=== PATIENT | male | born 1975 | race Caucasian/White ===

== ENCOUNTER 2017-02-04 16:02 | Emergency (ER) | payer BC, OTHER ==
[~2017-02-04] VITALS: Ht 190.5 cm; Wt 64.3 kg
[~2017-02-04 16:02] MED LIST: METF500T PO; METO1TAB54 PO; PANT40TA PO; WARF-246 PO
[2017-02-04 16:06] VITALS: TEMP 36.7; Ht 190.5 cm; Wt 64.3 kg
[2017-02-04] MEDS ORDERED: CHOL100010 PO (16:31)
[2017-02-04] MEDS ORDERED: OMEP40CA41 PO (16:31)
[2017-02-04] MEDS ORDERED: CALC600T37 PO (16:31)
[2017-02-04] MEDS ORDERED: OXYSR/10 PO (16:31)
[2017-02-04 16:54] LABS: BASO % 0.4 %; BASO ABS # 0.03 K/uL (0-0.2); COMPLETE YES; EOS % 2.6 %; HEMATOCRIT 43.8 % (42-52); IG% 0.1 %; LYMPH % 22.7 %; LYMPH ABS # 1.58 K/uL (1.2-3.4); MEAN CELL VOLUME 83.9 fL (80-100); MEAN CORPUSCULAR HEMOGLOBIN 31.6 pg (25-34); MEAN CORPUSCULAR HGB CONC 37.7 g/dl (32-36); MEAN PLATELET VOLUME 9.9 fL (7.4-10.4); MONO % 6.9 %; NEUT % 67.3 %; PLATELET COUNT 158 K/uL (130-400); RED BLOOD COUNT 5.22 M/uL (4.7-6.1); WHITE BLOOD COUNT 6.97 K/uL (4.8-10.8)
[2017-02-04 17:12] LABS: INR 1.3 (0.9-1.1); PARTIAL THROMBOPLASTIN RATIO 1.1; PROTHROMBIN TIME (PATIENT) 13.6 SECONDS (9.0-12.0)
[2017-02-04 17:13] LABS: BUN/CREATININE RATIO 12.1 (10-20); CALCIUM 9.1 mg/dl (8.5-10.1); CREATININE 0.86 mg/dl (0.60-1.40)
[2017-02-04 17:15] LABS: ALB/GLOB RATIO 1.3 (0.9-2)
--- NOTE | 2017-02-04 17:51 | DIAGNOSTIC IMAGING REPORT ---
ULTRASOUND BILATERAL LOWER EXTREMITY VENOUS CLINICAL HISTORY: Bilateral leg pain. COMPARISON STUDY: No priors. TECHNIQUE: Real-time, grayscale, and color Doppler sonography of the deep veins of the right and left lower extremity was performed from the inguinal crease to the calf. Compression and augmentation were utilized. FINDINGS: Right lower extremity: There is occlusive superficial venous thrombus identified within the right greater saphenous vein extending from the proximal thigh to the calf. There is occlusive deep venous thrombosis identified in the right calf within 1 of the peroneal veins. The remaining calf vessels are clear. No above knee deep venous thrombosis is seen in the right lower extremity. The common femoral, superficial femoral, and popliteal veins are patent and normally compressible. Left lower extremity: There is no sonographic evidence of deep venous thrombosis identified in the left lower extremity. The common femoral, superficial femoral, and popliteal veins are patent and normally compressible. There is occlusive superficial venous thrombus seen in the left greater saphenous vein extending from the mid thigh into the calf. The visualized calf veins are patent. IMPRESSION: 1. There is occlusive deep venous thrombosis identified in the right calf within one of the peroneal veins. 2. No above knee deep venous thrombosis is seen in the right lower extremity. 3. There is no sonographic evidence of deep venous thrombosis identified in the left lower extremity. 4. Extensive occlusive superficial venous thrombus is identified within the greater saphenous vein bilaterally. Electronically signed by: Christian Saunders M.D. 02/04/2017 5:50 PM Dictated Date/Time: 02/04/2017 5:45 PM
[2017-02-04] MEDS ORDERED: ENOXAPARIN 100 MG/1ML SYR SQ ONE (18:45)
--- NOTE | 2017-02-04 19:05 | EMERGENCY ROOM VISIT NOTE ---
History First contact with patient: 16:12 Chief Complaint: LEG PAIN,LEG INJURY Stated Complaint: B/L LEG PAIN, HX OF CLOTS History of Present Illness The patient is a 41 year old male who presents to the Emergency Room with complaints of bilateral leg pain which began 3 days ago. The patient reports that at its onset, the pain was a cramping pain in his shins. He now reports that the pain is pinching and burning, and radiates from his lower legs up to his thighs. The pain is worse in the right leg. He rates the discomfort a 9/ 10. The patient states the pain is worse with walking. He is concerned because he has a history of multiple blood clots. 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 He is on chronic warfarin therapy, but reports that his warfarin was held approximately 2 weeks ago due to an injection in his right shoulder. He restarted the warfarin on Thursday at his normal dose, which is 7.5 mg daily and 10 mg on Mondays and Fridays. He has not had his INR checked for a few months. He was previously seen by [facility] primary care provider and the [facility] coagulation clinic, but recently changed primary care providers and is no longer seeing a clinic. The patient denies any numbness, weakness, chest pain, or shortness of breath. Review of Systems A complete 10-point Review of Systems was discussed with the patient, with pertinent positives and negatives listed in the History of Present Illness. All remaining Review of Systems questions can be considered negative unless otherwise specified. Social History Smoking Status: Never Smoker Marital Status: Housing Status: lives with family Occupation Status: employed Current/Historical Medications Scheduled Calcium (Calcium), 600 MG PO QAM Cholecalciferol (Vitamin D), 1,000 UNIT PO QAM Enoxaparin (Lovenox), 100 MG SQ DAILY Metformin Hcl (Glucophage), 500 MG PO BID Omeprazole (Prilosec), 40 MG PO QAM Oxycodone HCl (Oxycontin), 10 MG PO QID Warfarin Sodium (Warfarin Sodium), 7.5 TAB PO 5XWK Warfarin Sodium (Warfarin Sodium), 10 TAB PO 2XWK Allergies Coded Allergies: Cephalexin (Unverified Allergy, Unknown, RASH, 02/04/17) Physical Exam Vital Signs Date Time Temp Pulse Resp B/P Pulse Ox O2 Delivery O2 Flow Rate FiO2 02/04/17 19:55 77 20 140/70 99 02/04/17 18:51 68 18 133/91 99 Room Air 02/04/17 17:55 74 16 124/77 97 Room Air 02/04/17 16:06 36.7 87 16 129/85 95 Room Air Physical Exam VITALS: Vitals are noted on the nurse's note and reviewed by myself. Vital signs stable. GENERAL: This is a 41-year-old male, in no acute distress, nondiaphoretic, well- developed well-nourished. SKIN: Capillary reflex less than 2 seconds. LUNGS: Clear to auscultation bilaterally without wheezes, rales or rhonchi. No retractions or accessory muscle use. MUSCULOSKELETAL: Tenderness to palpation of bilateral calves and thighs. There is red streaking along the medial aspect of the left knee and along the medial aspect of the right thigh. NEURO: Patient was alert and oriented to person place and time. Normal sensation to light and sharp touch. Deep tendon reflexes 2+ throughout. Medical Decision & Procedures ER Provider Diagnostic Interpretation: ULTRASOUND BILATERAL LOWER EXTREMITY VENOUS CLINICAL HISTORY: Bilateral leg pain. COMPARISON STUDY: No priors. TECHNIQUE: Real-time, grayscale, and color Doppler sonography of the deep veins of the right and left lower extremity was performed from the inguinal crease to the calf. Compression and augmentation were utilized. FINDINGS: Right lower extremity: There is occlusive superficial venous thrombus identified within the right greater saphenous vein extending from the proximal thigh to the calf. There is occlusive deep venous thrombosis identified in the right calf within 1 of the peroneal veins. The remaining calf vessels are clear. No above knee deep venous thrombosis is seen in the right lower extremity. The common femoral, superficial femoral, and popliteal veins are patent and normally compressible. Left lower extremity: There is no sonographic evidence of deep venous thrombosis identified in the left lower extremity. The common femoral, superficial femoral, and popliteal veins are patent and normally compressible. There is occlusive superficial venous thrombus seen in the left greater saphenous vein extending from the mid thigh into the calf. The visualized calf veins are patent. IMPRESSION: 1. There is occlusive deep venous thrombosis identified in the right calf within one of the peroneal veins. 2. No above knee deep venous thrombosis is seen in the right lower extremity. 3. There is no sonographic evidence of deep venous thrombosis identified in the left lower extremity. 4. Extensive occlusive superficial venous thrombus is identified within the greater saphenous vein bilaterally. Laboratory Results 02/04/17 16:40 Red Blood Count 5.22, Mean Corpuscular Volume 83.9, Mean Corpuscular Hemoglobin 31.6, Mean Corpuscular Hemoglobin Concent 37.7, Mean Platelet Volume 9.9, Neutrophils (%) (Auto) 67.3, Lymphocytes (%) (Auto) 22.7, Monocytes (%) (Auto) 6.9, Eosinophils (%) (Auto) 2.6, Basophils (%) (Auto) 0.4, Neutrophils # (Auto) 4.69, Lymphocytes # (Auto) 1.58, Monocytes # (Auto) 0.48, Eosinophils # (Auto) 0.18, Basophils # (Auto) 0.03 02/04/17 16:40 Test 02/04/17 16:40 White Blood Count 6.97 K/uL (4.8-10.8) Red Blood Count 5.22 M/uL (4.7-6.1) Hemoglobin 16.5 g/dL (14.0-18.0) Hematocrit 43.8 % (42-52) Mean Corpuscular Volume 83.9 fL (80-100) Mean Corpuscular Hemoglobin 31.6 pg (25-34) Mean Corpuscular Hemoglobin Concent 37.7 g/dl (32-36) Platelet Count 158 K/uL (130-400) Mean Platelet Volume 9.9 fL (7.4-10.4) Neutrophils (%) (Auto) 67.3 % Lymphocytes (%) (Auto) 22.7 % Monocytes (%) (Auto) 6.9 % Eosinophils (%) (Auto) 2.6 % Basophils (%) (Auto) 0.4 % Neutrophils # (Auto) 4.69 K/uL (1.4-6.5) Lymphocytes # (Auto) 1.58 K/uL (1.2-3.4) Monocytes # (Auto) 0.48 K/uL (0.11-0.59) Eosinophils # (Auto) 0.18 K/uL (0-0.5) Basophils # (Auto) 0.03 K/uL (0-0.2) RDW Standard Deviation 39.1 fL (36.4-46.3) RDW Coefficient of Variation 13.0 % (11.5-14.5) Immature Granulocyte % (Auto) 0.1 % Immature Granulocyte # (Auto) 0.01 K/uL (0.00-0.02) Prothrombin Time 13.6 SECONDS (9.0-12.0) Prothromb Time International Ratio 1.3 (0.9-1.1) Activated Partial Thromboplast Time 28.4 SECONDS (21.0-31.0) Partial Thromboplastin Ratio 1.1 Anion Gap 8.0 mmol/L (3-11) Est Creatinine Clear Calc Drug Dose 100.7 ml/min Estimated GFR () 123.1 Estimated GFR (Non- 106.2 BUN/Creatinine Ratio 12.1 (10-20) Calcium Level 9.1 mg/dl (8.5-10.1) Total Bilirubin 0.5 mg/dl (0.2-1) Aspartate Amino Transf (AST/SGOT) 9 U/L (15-37) Alanine Aminotransferase (ALT/SGPT) 20 U/L (12-78) Alkaline Phosphatase 87 U/L (45-117) Total Protein 7.0 gm/dl (6.4-8.2) Albumin 4.0 gm/dl (3.4-5.0) Globulin 3.0 gm/dl (2.5-4.0) Albumin/Globulin Ratio 1.3 (0.9-2) Medications Administered Medications (Trade) Dose Ordered Sig/Oksana Route Start Time Stop Time Status Last Admin Dose Admin Enoxaparin Sodium (Lovenox Inj) 100 mg NOW ONCE SQ 02/04/17 18:45 02/04/17 18:46 DC 02/04/17 18:45 100 MG Medical Decision Differential diagnosis includes DVT, superficial thrombosis, cellulitis, among others. The patient was evaluated as above. Labs were drawn and IV access was obtained. Imaging studies were performed and read by radiology as above. The patient is a 41-year-old male with extensive VTE history who presents today complaining of bilateral leg pain. Ultrasound did show a DVT of the right peroneal vein as well as extensive superficial thrombosis of bilateral lower extremities. INR was found to be 1.3. The patient recently restarted warfarin after stopping it for a few weeks. He will need to be bridged with Lovenox until his INR is therapeutic. Consultation was made to the ED clinical pharmacist. We decided to start the patient on 100 mg of Lovenox subcutaneously once daily. He will take a total of 15 mg warfarin today as well as tomorrow, then will start 10 mg daily. Case management was consulted and will make a referral to the anticoagulation clinic in the morning. The patient will need his INR checked in 2 days and was given an order for this in case he is not able to see the anticoagulation clinic. Results and treatment plan were discussed with the patient, who verbalized his understanding of my assessment and treatment plan and was discharged home in good condition. The patient's case was reviewed with Dr. Pyle, ED attending physician, who agreed with my assessment and treatment plan. Impression Primary Impression: Deep vein thrombosis Additional Impression: Superficial thrombosis of both lower extremities Departure Information Dispostion Home / Self-Care Condition GOOD Prescriptions Enoxaparin (LOVENOX) 100 Mg/Ml Inj 100 MG SQ DAILY for 7 Days, #7 SYR Prov: Maryellen Glass PA-C 02/04/17 Referrals John Angeles M.D. (PCP) Patient Instructions My [facility] Additional Instructions Lovenox: One injection daily until further directed by the coagulation clinic. Coumadin: Take 15 mg tomorrow, then 10 mg daily until further directed by the coagulation clinic. You may use warm compresses over the areas of pain. Case management will call you tomorrow with an appointment at the coagulation clinic or your primary care provider. You need follow-up in 2 days. Return to the emergency department with worsening pain, chest pain, shortness of breath or any other new concerning symptoms. Problem Qualifiers Primary Impression: Deep vein thrombosis DVT location: lower extremity Affected thrombotic vein of extremity: unspecified vein of extremity Laterality: right Chronicity: acute Qualified Codes: I82.401 - Acute embolism and thrombosis of unspecified deep veins of right lower extremity
[2017-02-04] MEDS ORDERED: ENOX100I SQ (19:20)
[2017-02-04 19:55] VITALS: BP 140/70; PULSE 77; O2SAT 99
== END 2017-02-04 19:57 | disposition home or self-care (01) ==
LOC: C.EDB 16:04 → C.EDD 19:57
DX: I82.4Y1 Acute embolism and thrombosis of unspecified deep veins of right proximal lower extremity (principal); I82.813 Embolism and thrombosis of superficial veins of lower extremities, bilateral; Z86.718 Personal history of other venous thrombosis and embolism; Z86.73 Personal history of transient ischemic attack (TIA), and cerebral infarction without residual deficits; Z79.01 Long term (current) use of anticoagulants; Z79.899 Other long term (current) drug therapy; Z88.8 Allergy status to other drugs, medicaments and biological substances

== ENCOUNTER 2024-12-21 13:25 | Observation (INO) ==
[2024-12-21] MEDS: SODIUM CHLORIDE 0.9% 1,000 ML IV ONE ×3 (13:50→18:37)
--- NOTE | 2024-12-21 14:09 | Emergency Department Note ---
Impression & Plan Altered mental status ADMIT ED Provider Note HPI: History obtained from patient. The patient is a 49-year-old gentleman with history of type 2 diabetes, DVT on Coumadin, who presents the emergency department with chief complaint of altered mental status. Patient presents with his significant other at the bedside. Patient began acting strange at work today, EMS was contacted and the patient was noted to be hyperglycemic in the 400s. Patient's significant other states that he does not normally take insulin but he is on oral agents for his type 2 diabetes. On arrival here to the ED the patient is alert, he states he does not remember exactly what happened at work to lead to his presentation to the ER. He did not have any reported fall or loss of consciousness. Patient is able to follow commands on arrival, he does not have any focal deficits. ROS: - Per HPI Differential Diagnosis: DKA, HHNK, viral gastroenteritis, COVID-19, influenza A, stroke, intracranial hemorrhage, small bowel obstruction, acute appendicitis, acute cholecystitis, diverticulitis,, amongst other potential pathologies. *Outpatient medications and allergy history reviewed. PE: General: Alert to verbal stimuli, drowsy appearing HEENT: Normocephalic, trachea midline Eyes: Extraocular eye movement is intact, no scleral erythema Pulmonary: Clear to auscultation bilaterally, no wheezing Cardio: Tachycardic rate and regular rhythm GI: Abdomen is soft to palpation : No suprapubic tenderness MSK: No evidence of trauma or malformation of the extremities, no edema Skin: No evidence of rash Neuro: Alert to verbal stimuli but overall drowsy appearing, no focal deficits, follows commands Psychiatric: Cooperative INDEPENDENT INTERPRETATIONS: monitoring coordinator: (As interpreted by myself): - An order was placed for continuous cardiac monitoring - Patient was noted to be in sinus rhythm with a rate of 119 EKG: (As interpreted by myself): Rate: 128 Rhythm: Sinus tachycardia Intervals: Within normal limits ST changes: No ST elevation Time: 1330 Chest x-ray: (As interpreted by myself): No acute disease Interventions provided in ED: -IV fluid bolus, Narcan Medical Decision Making: IV was established and lab work obtained, patient was placed on youth nutritional monitor. Lab work shows no leukocytosis, hemoglobin is normal, platelet count is normal, INR is supratherapeutic at 4.6, venous blood gas shows a normal pH, pCO2 is also normal. CMP does not show evidence of DKA, serum bicarbonate level is 26, potassium is normal, glucose level is elevated at 275 but there is no anion gap elevation. Lactic acid is mildly elevated at 2.1. Troponin is negative, EKG shows sinus tachycardia without any acute ischemic changes noted. Procalcitonin is low. Urinalysis shows no evidence of infection, 1+ ketones and 3+ glucose are noted. Viral panel testing is negative. CT imaging of the head does not show any evidence of any acute process. CT imaging of the abdomen pelvis with IV contrast was also obtained that does not show any evidence of any acute surgical process. On my reassessment the patient remains tachycardic, while I am speaking to him he seems to be falling asleep and at times requires me to wake him up. At this point I did inquire about possible illicit substance use or opioid overdose, he is noted to be on opioid pain medication for chronic pain according to his significant other at the bedside. Patient denied taking any extra pain medications, denied any illicit drug use or alcohol use. Narcan was administered, per bedside RN patient did become more alert and was mildly agitated following Narcan administration. We will add on a UDS for further investigation although at this point the patient's episode of altered mentation does not have an obvious source. Patient remains tachycardic at 115, he does not appear back to his baseline mentation entirely, I feel he should be admitted for further management and observation given his event today with unclear source. [facility] hospitalist service was consulted for admission and the patient was placed for admission in stable condition. Patient and his spouse at the bedside were in agreement to this plan. Consultants/Discussions held with other healthcare providers: -Hospitalist, Dr. Polanco. Disposition discussion held by myself with: -Patient and patient's significant other at the bedside Diagnosis: 1. Altered mental status episode, acute, nonspecific 2. Hyperglycemia, acute 3. Supratherapeutic INR, acute 4. Nausea and vomiting, acute 5. Sinus tachycardia, acute, nonspecific Disposition: Admission Prasad Andino DO Emergency Medicine Past Med/Surg History Problem List (Updated 12/21/24 @ 16:37 by Prasad Andino DO) Altered mental status (Acute) Deep vein thrombosis (Acute) Muscle spasms of neck (Acute) Superficial thrombosis of both lower extremities (Acute) Social History Preferred Language: Bengali Feels Safe at Home: Yes Allergies Allergies Allergy/AdvReac Type Severity Reaction Status Date / Time cephalexin Allergy Unknown RASH Unverified 12/21/24 16:47 Home Meds Home Medications Medication Instructions Recorded Confirmed glimepiride 1 mg tablet 2 mg PO QDB 12/21/24 12/21/24 metformin 850 mg tablet 850 mg PO BID 12/21/24 12/21/24 omeprazole 40 mg capsule,delayed 40 mg PO DAILY 12/21/24 12/21/24 release oxycodone 15 mg tablet 15 mg PO Q6 PRN Pain 12/21/24 12/21/24 rosuvastatin 10 mg tablet 10 mg PO HS 12/21/24 12/21/24 warfarin 5 mg tablet 5 - 15 mg PO DAILY 12/21/24 12/21/24 Results & Data (ED) Vital Signs Vital Signs - 24 hr 12/21/24 13:42 12/21/24 13:42 12/21/24 13:45 Temperature 37.8 C H Temperature Source Oral Pulse Rate 127 H 122 H Pulse Rate [Finger] Respiratory Rate 22 Respiratory Effort / Characteristics Respiratory Depth Normal Respiratory Pattern Blood Pressure 135/88 Blood Pressure [Right Arm] Blood Pressure Mean 103 Blood Pressure Mean [Right Arm] Pulse Oximetry 95 Oxygen Delivery Method Room Air Room Air Sepsis Recent Fever Within 48 Hours Yes Sepsis New/Unexplained Change in Mental Status No Sepsis Action Taken by Nursing Physician Notified 12/21/24 13:49 12/21/24 15:32 Temperature 37.0 C Temperature Source Oral Pulse Rate Pulse Rate [Finger] 67 Respiratory Rate 16 Respiratory Effort / Characteristics Non-Labored Respiratory Depth Normal Respiratory Pattern Regular Blood Pressure Blood Pressure [Right Arm] 131/81 Blood Pressure Mean Blood Pressure Mean [Right Arm] 97 Pulse Oximetry 95 Oxygen Delivery Method Room Air Room Air Sepsis Recent Fever Within 48 Hours Sepsis New/Unexplained Change in Mental Status Sepsis Action Taken by Nursing Laboratory Data 12/21/24 13:35 12/21/24 13:35 Lab Results 12/21/24 12/21/24 12/21/24 Range/Units 13:34 13:35 14:55 WBC 7.41 (4.8-10.8) K/ul RBC 5.13 (4.70-6.10) M/uL Hgb 15.1 (14.0-18.0) g/dl Hct 42.8 (42.0-52.0) % MCV 83.4 (80.0-100.0) fL MCH 29.4 (25.0-34.0) pg MCHC 35.3 (32.0-36.0) g/dL RDW Std Deviation 38.7 (36.4-46.3) fL RDW Coeff of Justin 13.0 (11.5-14.5) % Plt Count 166 (130-400) K/uL MPV 9.8 (9.4-12.4) fL Immature Gran % (Auto) 2.2 % Neut % (Auto) 85.5 % Lymph % (Auto) 6.3 % [place] % (Auto) 3.8 % Eos % (Auto) 1.8 % Baso % (Auto) 0.4 % Neut # (Auto) 6.34 (1.40-6.50) K/uL Lymph # (Auto) 0.47 L (1.20-3.40) K/uL [place] # (Auto) 0.28 (0.11-0.59) K/uL Eos # (Auto) 0.13 (0.00-0.50) K/uL Baso # (Auto) 0.03 (0.00-0.20) K/uL Immature Gran # (Auto) 0.16 (0.01-0.20) K/uL PT 43.4 H (9.0-12.0) Seconds INR 4.6 H (0.9-1.1) VBG pH 7.39 (7.36-7.41) VBG pCO2 47 (38-50) mmHg VBG pO2 29 mmHg VBG HCO3 29 mmol/L VBG O2 Saturation < 60.0 % VBG Base Excess 2.8 mEq/L Sodium 136 (136-145) mmol/L Potassium 3.9 (3.5-5.1) mmol/L Chloride 101 (98-107) mmol/L Carbon Dioxide 26 (21-32) mmol/L Anion Gap 9 (3-11) BUN 13 (6-23) mg/dl Creatinine 0.91 (0.6-1.4) mg/dl Est Cr Clr Drug Dosing 108.5 ml/min eGFR 102.04 BUN/Creatinine Ratio 14.3 (10-20) Glucose 275 H (70-99(Fasting)) mg/dl POC Glucose 269 H (70-99) mg/dl Lactate 2.1 H* (0.4-2.0) mmol/L Calcium 9.3 (8.6-10.3) mg/dl Total Bilirubin 1.1 H (0.2-1.0) mg/dl AST 27 (13-39) U/L ALT 28 (7-52) U/L Alkaline Phosphatase 76 (34-104) U/L Troponin I High Sens 3.9 (0-20) pg/ml Total Protein 6.6 (6.0-8.3) gm/dl Albumin 4.4 (3.4-5.0) gm/dl Globulin 2.2 L (2.5-4.0) gm/dl Albumin/Globulin Ratio 2.0 (0.9-2) Lipase 12 (11-82) U/L Procalcitonin 0.48 (0-0.5) ng/ml Urine Color Urine Appearance (Clear) Urine pH (4.5-7.5) Ur Specific [place] (1.000-1.030) Urine Protein (Negative) Urine Glucose (UA) (Negative) Urine Ketones (Negative) Urine Blood (Negative) Urine Nitrite (Negative) Urine Bilirubin (Negative) Urine Urobilinogen (Negative) Ur Leukocyte Esterase (Negative) Adenovirus (PCR) (NotDetected) B. pertussis DNA (PCR) (NotDetected) B.parapertussis DNA PCR (NotDetected) C. pneumoniae DNA (PCR) (NotDetected) Coronavirus OC43 (PCR) (NotDetected) Coronavirus HKU1 (PCR) (NotDetected) Coronavirus 229E (PCR) (NotDetected) SARS-CoV-2 (PCR) (NotDetected) Coronavirus NL63 (PCR) (NotDetected) Human Metapneumovir PCR (NotDetected) Influenza Type A (PCR) (NotDetected) Influenza Type B (PCR) (NotDetected) M. pneumoniae (PCR) (NotDetected) Parainfluenza 1 (PCR) (NotDetected) Parainfluenza 2 (PCR) (NotDetected) Parainfluenza 3 (PCR) (NotDetected) Parainfluenza 4 (PCR) (NotDetected) RSV (PCR) (NotDetected) Entero/Rhino (PCR) (NotDetected) 12/21/24 12/21/24 Range/Units 15:41 Unknown WBC (4.8-10.8) K/ul RBC (4.70-6.10) M/uL Hgb (14.0-18.0) g/dl Hct (42.0-52.0) % MCV (80.0-100.0) fL MCH (25.0-34.0) pg MCHC (32.0-36.0) g/dL RDW Std Deviation (36.4-46.3) fL RDW Coeff of Jusitn (11.5-14.5) % Plt Count (130-400) K/uL MPV (9.4-12.4) fL Immature Gran % (Auto) % Neut % (Auto) % Lymph % (Auto) % [place] % (Auto) % Eos % (Auto) % Baso % (Auto) % Neut # (Auto) (1.40-6.50) K/uL Lymph # (Auto) (1.20-3.40) K/uL [place] # (Auto) (0.11-0.59) K/uL Eos # (Auto) (0.00-0.50) K/uL Baso # (Auto) (0.00-0.20) K/uL Immature Gran # (Auto) (0.01-0.20) K/uL PT (9.0-12.0) Seconds INR (0.9-1.1) VBG pH (7.36-7.41) VBG pCO2 (38-50) mmHg VBG pO2 mmHg VBG HCO3 mmol/L VBG O2 Saturation % VBG Base Excess mEq/L Sodium (136-145) mmol/L Potassium (3.5-5.1) mmol/L Chloride (98-107) mmol/L Carbon Dioxide (21-32) mmol/L Anion Gap (3-11) BUN (6-23) mg/dl Creatinine (0.6-1.4) mg/dl Est Cr Clr Drug Dosing ml/min eGFR BUN/Creatinine Ratio (10-20) Glucose (70-99(Fasting)) mg/dl POC Glucose (70-99) mg/dl Lactate (0.4-2.0) mmol/L Calcium (8.6-10.3) mg/dl Total Bilirubin (0.2-1.0) mg/dl AST (13-39) U/L ALT (7-52) U/L Alkaline Phosphatase (34-104) U/L Troponin I High Sens (0-20) pg/ml Total Protein (6.0-8.3) gm/dl Albumin (3.4-5.0) gm/dl Globulin (2.5-4.0) gm/dl Albumin/Globulin Ratio (0.9-2) Lipase (11-82) U/L Procalcitonin (0-0.5) ng/ml Urine Color Yellow Urine Appearance Clear (Clear) Urine pH 5.5 (4.5-7.5) Ur Specific [place] 1.035 H (1.000-1.030) Urine Protein Negative (Negative) Urine Glucose (UA) 3+ H (Negative) Urine Ketones 1+ H (Negative) Urine Blood Negative (Negative) Urine Nitrite Negative (Negative) Urine Bilirubin Negative (Negative) Urine Urobilinogen Negative (Negative) Ur Leukocyte Esterase Negative (Negative) Adenovirus (PCR) Not Detected (NotDetected) B. pertussis DNA (PCR) Not Detected (NotDetected) B.parapertussis DNA PCR Not Detected (NotDetected) C. pneumoniae DNA (PCR) Not Detected (NotDetected) Coronavirus OC43 (PCR) Not Detected (NotDetected) Coronavirus HKU1 (PCR) Not Detected (NotDetected) Coronavirus 229E (PCR) Not Detected (NotDetected) SARS-CoV-2 (PCR) Not Detected (NotDetected) Coronavirus NL63 (PCR) Not Detected (NotDetected) Human Metapneumovir PCR Not Detected (NotDetected) Influenza Type A (PCR) Not Detected (NotDetected) Influenza Type B (PCR) Not Detected (NotDetected) M. pneumoniae (PCR) Not Detected (NotDetected) Parainfluenza 1 (PCR) Not Detected (NotDetected) Parainfluenza 2 (PCR) Not Detected (NotDetected) Parainfluenza 3 (PCR) Not Detected (NotDetected) Parainfluenza 4 (PCR) Not Detected (NotDetected) RSV (PCR) Not Detected (NotDetected) Entero/Rhino (PCR) Not Detected (NotDetected) Administered Medications Discontinued Medications Sodium Chloride (Nss) 1,000 mls @ 999 mls/hr IV .Q1H1M ONE Stop: 12/21/24 14:42 Last Infusion: 12/21/24 14:41 Dose: Infused Documented By: Admin: 12/21/24 14:40 Dose: 999 mls/hr Documented By: MMGiovani Infusion: 12/21/24 14:40 Dose: Infused Documented By: MMGiovani Admin: 12/21/24 13:50 Dose: 999 mls/hr Documented By: MARQUIS Sodium Chloride (Nss) 1,000 mls @ 999 mls/hr IV .Q1H1M ONE Stop: 12/21/24 15:08 Last Infusion: 12/21/24 16:03 Dose: Infused Documented By: Admin: 12/21/24 14:40 Dose: 999 mls/hr Documented By: MARQUIS Ioversol (Optiray 320 100ml) 94 ml IV ONCE ONE Stop: 12/21/24 15:14 Last Admin: 12/21/24 15:13 Dose: 94 ml Documented By: FROYLAN Naloxone HCl (Naloxone Hcl 0.4 Mg/1 Ml Vial/Carp) 0.4 mg IV NOW STA Stop: 12/21/24 16:06 Last Admin: 12/21/24 16:09 Dose: 0.4 mg Documented By: ENMANUEL Imaging Data Radiologist's Impression: Abdomen/Pelvis CT 12/21/24 14:[address] WITH IV CONTRAST CT DOSE: 995.38 mGy.cm HISTORY: N/V/D TECHNIQUE: Multiaxial CT images of the abdomen and pelvis were performed following the IV administration of 90 cc of Optiray, A dose lowering technique was utilized adhering to the principles of ALARA. COMPARISON STUDY: None FINDINGS: There are mild reticular and patchy groundglass opacities in the lung bases, atelectasis versus early pneumonia. ABDOMEN: There is mild splenomegaly measuring 13 cm. There is fatty atrophy of the pancreas. Liver, gallbladder, spleen, pancreas, and adrenal glands are otherwise unremarkable. IVC filter is present. Kidneys show no hydronephrosis or calculi. There are minimal atherosclerotic calcifications. No abdominal aortic aneurysm. Pelvis: Prostate is mildly enlarged. Urinary bladder is nondistended. There is moderate retained stool. No bowel in formation or obstruction. Normal appendix. No free fluid, free air, or abscess. No enlarged adenopathy. Osseous structures: There is a small area of mixed sclerosis and lucency superiorly at the right femoral head consistent with early AVN. No acute osseous findings. IMPRESSION: 1. Atelectasis versus early pneumonia in the lung bases. 2. Mild splenomegaly can be normal variation or can be seen in the setting of mononucleosis. 3. No other acute findings seen. ACT 112: Negative or not required by law. The above report was generated using voice recognition software. It may contain grammatical, syntax or spelling errors. Electronically signed by: Hemal Perkins M.D. 12/21/2024 3:[address] 12/21/24 14:55 CT head/brain wo con CLINICAL HISTORY: AMS Technique: Contiguous axial CT images of the head were acquired from the base of the skull to the vertex without intravenous contrast administration. Images were viewed in brain, subdural and bone windows. Automated dose lowering techniques and/or adjustment according to patient size were utilized for this exam. Comparison: None available at the time of this dictation. Findings: The ventricles, basal cisterns, and cerebral sulci are normal. There is no acute intracranial hemorrhage or evidence of acute territorial infarction. Neither mass effect, shift of the midline structures, nor abnormal extra-axial fluid collections are shown. Imaged portions of the paranasal sinuses and mastoid air cells are clear. The orbits appear normal. There are no acute fractures of the calvaria or scalp swelling. Impression: No acute intracranial hemorrhage, no evidence of acute territorial infarction or other acute intracranial disease process. ACT 112: Negative or not required by law. Electronically signed by: Quincy Loya M.D. 12/21/2024 3:28 PM Discharge Plan Visit Data Chief Complaint: Hyperglycemia Stated Complaint: HYPERGLYCEMIA, AMS, NAUSEA, VOMITING, ILLNESS ED Provider: Prasad Andino Discharge Problem: Altered mental status Forms Stand Alone Forms: [facility] [place] Local Prescriptions Prescriptions: No Action oxycodone 15 mg tablet 15 mg PO Q6 PRN (Reason: Pain) warfarin 5 mg tablet 5 - 15 mg PO DAILY Rx Instructions: OR DIRECTED metformin 850 mg tablet 850 mg PO BID omeprazole 40 mg capsule,delayed release(DR/EC) 40 mg PO DAILY rosuvastatin 10 mg tablet 10 mg PO HS glimepiride 1 mg tablet 2 mg PO QDB Referrals Referrals: Tanmay Schultz MD [Primary Care Provider] -
[2024-12-21 14:16] LABS: Basophils # (auto) 0.03 K/uL (0.00-0.20); Basophils % (auto) 0.4 %; Eosinophils # (auto) 0.13 K/uL (0.00-0.50); Eosinophils % (auto) 1.8 %; Hematocrit (blood only) 42.8 % (42.0-52.0); Hemoglobin 15.1 g/dl (14.0-18.0); Immature Granulocytes # (auto) 0.16 K/uL (0.01-0.20); Immature Granulocytes % (auto) 2.2 %; Lymphocytes # (auto) 0.47 K/uL (1.20-3.40); Lymphocytes % (auto) 6.3 %; Mean Corpuscular Hemoglobin 29.4 pg (25.0-34.0); Mean Corpuscular Hgb Conc 35.3 g/dL (32.0-36.0); Mean Corpuscular Volume 83.4 fL (80.0-100.0); Mean Platelet Volume 9.8 fL (9.4-12.4); Monocytes # (auto) 0.28 K/uL (0.11-0.59); Monocytes % (auto) 3.8 %; Neutrophils # (auto) 6.34 K/uL (1.40-6.50); Neutrophils % (auto) 85.5 %; Platelet Count 166 K/uL (130-400); RDW Standard Deviation 38.7 fL (36.4-46.3); Red Blood Count 5.13 M/uL (4.70-6.10); White Blood Count 7.41 K/ul (4.8-10.8)
[2024-12-21 14:21] LABS: Albumin Level 4.4 gm/dl (3.4-5.0); BUN Creatinine Ratio 14.3 (10-20); Bilirubin,Total 1.1 mg/dl (0.2-1.0); Calcium 9.3 mg/dl (8.6-10.3); Creatinine Clr Calc Pharmacy 108.5 ml/min; Globulin 2.2 gm/dl (2.5-4.0); Potassium 3.9 mmol/L (3.5-5.1); Total Protein 6.6 gm/dl (6.0-8.3)
[2024-12-21 14:27] LABS: Troponin I High Sensitivity 3.9 pg/ml (0-20)
[2024-12-21 14:29] LABS: INR 4.6 (0.9-1.1); Prothrombin Time 43.4 Seconds (9.0-12.0)
[2024-12-21 15:08] LABS: Base Excess VBG 2.8 mEq/L; HCO3 VBG 29 mmol/L; Oxygen Saturation VBG < 60.0 %; PCO2 VBG 47 mmHg (38-50); PO2 VBG 29 mmHg; pH VBG 7.39 (7.36-7.41)
[2024-12-21] MEDS: OPTIRAY 320 100ml IV ONE (15:13)
--- NOTE | 2024-12-21 15:29 | CT Scan Report ---
CT head/brain wo con CLINICAL HISTORY: AMS Technique: Contiguous axial CT images of the head were acquired from the base of the skull to the donn josephine without intravenous contrast administration. Images were viewed in brain, subdural and [facility]. Automated dose lowering techniques and/or adjustment according to patient size were utilized for this exam. Comparison: None available at the time of this dictation. Findings: The ventricles, basal cisterns, and cerebral sulci are normal. There is no acute intracranial hemorrh age or evidence of acute territorial infarction. Neither mass effect, shift of the midline structures , nor abnormal extra-axial fluid collections are shown. Imaged portions of the paranasal sinuses and mastoid air cells are clear. The orbits appear normal. There are no acute fractures of the calvaria or scalp swelling. Impression: No acute intracranial hemorrhage, no evidence of acute territorial infarction or other acute intracra nial disease process. ACT 112: Negative or not required by law. Electronically signed by: Quincy Loya M.D. 12/21/2024 3:28 PM
[2024-12-21 15:52] LABS: Appearance Urine Clear (Clear); Bilirubin Urine Negative (Negative); Blood Urine Negative (Negative); Color Urine Yellow; Glucose Urine UA 3+ (Negative); Ketones Urine 1+ (Negative); Leukocyte Esterase Urine Negative (Negative); Nitrite Urine Negative (Negative); Protein Urine Negative (Negative); Specific Gravity Urine 1.035 (1.000-1.030); Urobilinogen Urine Negative (Negative); pH Urine 5.5 (4.5-7.5)
[2024-12-21 15:55] LABS: Adenovirus PCR Not Detected (NotDetected); Bordetella parapertussis PCR Not Detected (NotDetected); Bordetella pertussis PCR Not Detected (NotDetected); Chlamydia pneumoniae PCR Not Detected (NotDetected); Coronavirus 229E PCR Not Detected (NotDetected); Coronavirus CoV-2 (COVID19)PCR Not Detected (NotDetected); Coronavirus HKU1 PCR Not Detected (NotDetected); Coronavirus NL63 PCR Not Detected (NotDetected); Coronavirus OC43PCR Not Detected (NotDetected); Human Metapneumovirus PCR Not Detected (NotDetected); Influenza A PCR Not Detected (NotDetected); Influenza B PCR Not Detected (NotDetected); Mycoplasma pneumoniae PCR Not Detected (NotDetected); Parainfluenza Virus 1 PCR Not Detected (NotDetected); Parainfluenza Virus 2 PCR Not Detected (NotDetected); Parainfluenza Virus 3 PCR Not Detected (NotDetected); Parainfluenza Virus 4 PCR Not Detected (NotDetected); Respiratory Syncytial VirusPCR Not Detected (NotDetected); Rhinovirus/Enterovirus PCR Not Detected (NotDetected)
--- NOTE | 2024-12-21 15:55 | CT Scan Report ---
ABDOMEN AND PELVIS CT WITH IV CONTRAST CT DOSE: 995.38 mGy.cm HISTORY: N/V/D TECHNIQUE: Multiaxial CT images of the abdomen and pelvis were performed following the IV administrat ion of 90 cc of Optiray, A dose lowering technique was utilized adhering to the principles of ALARA. COMPARISON STUDY: None FINDINGS: There are mild reticular and patchy groundglass opacities in the lung bases, atelectasis ve rsus early pneumonia. ABDOMEN: There is mild splenomegaly measuring 13 cm. There is fatty atrophy of the pancreas. Liver, g allbladder, spleen, pancreas, and adrenal glands are otherwise unremarkable. IVC filter is present. K idneys show no hydronephrosis or calculi. There are minimal atherosclerotic calcifications. No abdomi nal aortic aneurysm. Pelvis: Prostate is mildly enlarged. Urinary bladder is nondistended. There is moderate retained stoo l. No bowel in formation or obstruction. Normal appendix. No free fluid, free air, or abscess. No enl arged adenopathy. Osseous structures: There is a small area of mixed sclerosis and lucency superiorly at the right femo ral head consistent with early AVN. No acute osseous findings. IMPRESSION: 1. Atelectasis versus early pneumonia in the lung bases. 2. Mild splenomegaly can be normal variation or can be seen in the setting of mononucleosis. 3. No other acute findings seen. ACT 112: Negative or not required by law. The above report was generated using voice recognition software. It may contain grammatical, syntax o r spelling errors. Electronically signed by: Hemal Perkins M.D. 12/21/2024 3:53 PM
[2024-12-21] MEDS: NALOXONE HCL 0.4 MG/1 ML VIAL/CARP IV STA (16:09)
[2024-12-21 16:53] LABS: Amphetamines+Metham, Urine Neg (Neg); Barbiturates, Urine Neg (Neg); Benzodiazepine, Urine Pos (Neg); Cocaine, Urine Neg (Neg); Fentanyl, Urine Neg (Neg); MDMA (Ecstacy), Urine Neg (Neg); Marijuana, Urine Neg (Neg); Methadone, Urine Neg (Neg); Opiate, Urine Pos (Neg); Phencyclidine, Urine Neg (Neg)
--- NOTE | 2024-12-21 17:02 | XRay Report ---
EXAM: XR chest 1V portable CLINICAL HISTORY: FEVER CLW TECHNIQUE: An X-ray image of the chest is obtained in frontal projection. COMPARISON: No prior studies are available for comparison. FINDINGS: Pulmonary Parenchyma: Bilateral increased broncho vascular markings with a diffuse increase in lung reticulations which may suggest an element of interstitial lung disease. Bilateral patchy and right lower zone air space opacification partially obscures the right heart border, suggestive of a pneumonic patch. blunted left costophrenic angle with left lower lung lobe with few thin atelectatic bands. Heart and Mediastinum: Heart size and shape are normal. No mediastinal widening or masses. No hilar or mediastinal lymphadenopathy. Bony Thorax: The bony thorax appears intact without fractures or deformities. Soft Tissues: Soft tissues overlying the chest wall are unremarkable. IMPRESSION: 1. Bilateral increased broncho vascular markings with a diffuse increase in lung reticulations, raising concern for atypical infection. 2. Bilateral and right lower lung zone air space opacification partially obscures the right heart border, suggestive of a pneumonic patch, clinical correlation is advised. 3. Blunted left costophrenic angle with left lower lung lobe with few thin atelectatic bands, suggestive of minimal pleural thickening/effusion. Clinical correlation and follow-up after treatment are advised. Electronically signed by Poncho Castro 12-21-2024 5:02 PM
--- NOTE | 2024-12-21 17:04 | Electrocardiogram Report ---
Test Reason : Blood Pressure : */* mmHG Vent. Rate : 128 BPM Atrial Rate : 128 BPM P-R Int : 156 ms QRS Dur : 92 ms QT Int : 298 ms P-R-T Axes : 46 20 32 degrees QTcB Int : 435 ms Sinus tachycardia Possible Left atrial enlargement Type 2 Brugada pattern Borderline ECG When compared with ECG of Confirmed by Aurelio Swartz ([id number]) on 12/21/2024 5:03:38 PM Referred By: REFERRED SELF Confirmed By: Aurelio Swartz
--- NOTE | 2024-12-21 17:22 | History & Physical Report ---
Date of Service December 21, 2024 Assessment & Plan (1) Altered mental status: (2) Hx TIA/stroke w/o resid: (3) T2DM (type 2 diabetes mellitus): Plan: Please refer to Dr. Polanco addendum for assessment and plan. I spent a total of 45 minutes coordinating, documenting and providing care for this patient excluding time spent in the performance of separately billed services or time spent by another provider/QHP. History of Present Illness Chief Complaint: Altered mental status. Primary Care Provider: Tanmay Schultz MD This is a 49 yr old M who has a significant PMH of T2DM, HLD, Hypertriglyceridemia, GERD who presents to ED 2/2 AMS. Pt is at bedside who helps elicit history. 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 EMS was then summoned as pt never has had a BSG that high. His blood pressure en route per was also elevated which she reports he never has had issues with his blood pressure. reports his bsg has been in the 200s and he will get very tired with it that high. No other focal deficits reported including facial droop, slurred speech or extremity weakness. Prior to today episode he was in his normal state of health. He drove him and his to work this morning and he was fine. He reports being at his work bench and was slumped over. His co workers were asking if he was okay. He took all of his medications today. He denies any recent illness, f/c/s, chest pain, sob, n/v/d. Currently he states he feels alright. He doesn't feel like his energy is 100%. The feels like his color is back to normal and his mental status is back to baseline. He denies any alcohol or cigarettes, but he does use chewing tobacco. His last A1C was 7.3 on 09/14/24. Allergies Allergy/AdvReac Type Severity Reaction Status Date / Time cephalexin Allergy Unknown RASH Unverified 12/21/24 16:47 Home Medications Medication Instructions Recorded Confirmed Type glimepiride 1 mg tablet 2 mg PO QDB 12/21/24 12/21/24 History metformin 850 mg tablet 850 mg PO BID 12/21/24 12/21/24 History omeprazole 40 mg capsule,delayed 40 mg PO DAILY 12/21/24 12/21/24 History release oxycodone 15 mg tablet 15 mg PO Q6 PRN Pain 12/21/24 12/21/24 History rosuvastatin 10 mg tablet 10 mg PO HS 12/21/24 12/21/24 History warfarin 5 mg tablet 5 mg PO WE 12/21/24 12/21/24 History warfarin 5 mg tablet 10 mg PO SUMOTUTHFRSA 12/21/24 12/21/24 History Past Med/Surg History Problem List (Updated 12/21/24 @ 17:48 by Bonnie Noel PA-C) Altered mental status (Acute) Deep vein thrombosis (Acute) Muscle spasms of neck (Acute) Superficial thrombosis of both lower extremities (Acute) Medical History (Updated 12/21/24 @ 17:48 by Bonnie Noel PA-C) GERD (gastroesophageal reflux disease) Sarcoidosis Hx TIA/stroke w/o resid HLD (hyperlipidemia) T2DM (type 2 diabetes mellitus) Surgical History (Updated 12/21/24 @ 17:48 by Bonnie Noel PA-C) Hx of umbilical hernia repair Family History (Updated 12/21/24 @ 17:49 by Bonnie Noel PA-C) Father Stroke Diabetes Mother Diabetes Social History (Updated 12/21/24 @ 17:49 by Bonnie Noel PA-C) Smoking Status: Current some day smoker Tobacco Type: Smokeless Tobacco (Dip or Chew) Hx Alcohol Use: No Hx Substance Use: No Preferred Language: Khmer marital status: Current Living Situation: Spouse Feels Safe at Home: Yes Review of Systems Review of Systems: All systems reviewed & are unremarkable except as noted in HPI & below Physical Exam Physical Exam: please refer to Dr. Polanco addendum for physical exam findings. Results & Data Results & Data Vital Signs (Past 12 Hours) Vital Signs Temp Pulse Pulse Resp BP BP Pulse Ox 12/21/24 15:32 37.0 C 67 16 131/81 95 12/21/24 13:49 12/21/24 13:45 122 H 12/21/24 13:42 12/21/24 13:42 37.8 C H 127 H 22 135/88 95 O2 Del Method 12/21/24 15:32 Room Air 12/21/24 13:49 Room Air 12/21/24 13:45 12/21/24 13:42 Room Air 12/21/24 13:42 Room Air Laboratory Results Short CBC 12/21/24 Range/Units 13:35 WBC 7.41 (4.8-10.8) K/ul Hgb 15.1 (14.0-18.0) g/dl Hct 42.8 (42.0-52.0) % Plt Count 166 (130-400) K/uL BMP 12/21/24 13:35 Sodium 136 Potassium 3.9 Chloride 101 Carbon Dioxide 26 BUN 13 Creatinine 0.91 Glucose 275 H Calcium 9.3 Liver Function 12/21/24 Range/Units 13:35 Total Bilirubin 1.1 H (0.2-1.0) mg/dl AST 27 (13-39) U/L ALT 28 (7-52) U/L Alkaline Phosphatase 76 (34-104) U/L Albumin 4.4 (3.4-5.0) gm/dl Urine 12/21/24 Range/Units 15:41 Urine Color Yellow Urine Appearance Clear (Clear) Urine pH 5.5 (4.5-7.5) Ur Specific [place] 1.035 H (1.000-1.030) Urine Protein Negative (Negative) Urine Glucose (UA) 3+ H (Negative) Diagnostic Findings Chest X-Ray 12/21/24 14:29 EXAM: XR chest 1V portable CLINICAL HISTORY: FEVER CLW TECHNIQUE: An X-ray image of the chest is obtained in frontal projection. COMPARISON: No prior studies are available for comparison. FINDINGS: Pulmonary Parenchyma: Bilateral increased broncho vascular markings with a diffuse increase in lung reticulations which may suggest an element of interstitial lung disease. Bilateral patchy and right lower zone air space opacification partially obscures the right heart border, suggestive of a pneumonic patch. blunted left costophrenic angle with left lower lung lobe with few thin atelectatic bands. Heart and Mediastinum: Heart size and shape are normal. No mediastinal widening or masses. No hilar or mediastinal lymphadenopathy. Bony Thorax: The bony thorax appears intact without fractures or deformities. Soft Tissues: Soft tissues overlying the chest wall are unremarkable. IMPRESSION: 1. Bilateral increased broncho vascular markings with a diffuse increase in lung reticulations, raising concern for atypical infection. 2. Bilateral and right lower lung zone air space opacification partially obscures the right heart border, suggestive of a pneumonic patch, clinical correlation is advised. 3. Blunted left costophrenic angle with left lower lung lobe with few thin atelectatic bands, suggestive of minimal pleural thickening/effusion. Clinical correlation and follow-up after treatment are advised. Electronically signed by Poncho Castro 12-21-2024 5:02 PM Abdomen/Pelvis CT 12/21/24 14:[address] WITH IV CONTRAST CT DOSE: 995.38 mGy.cm HISTORY: N/V/D TECHNIQUE: Multiaxial CT images of the abdomen and pelvis were performed following the IV administration of 90 cc of Optiray, A dose lowering technique was utilized adhering to the principles of ALARA. COMPARISON STUDY: None FINDINGS: There are mild reticular and patchy groundglass opacities in the lung bases, atelectasis versus early pneumonia. ABDOMEN: There is mild splenomegaly measuring 13 cm. There is fatty atrophy of the pancreas. Liver, gallbladder, spleen, pancreas, and adrenal glands are otherwise unremarkable. IVC filter is present. Kidneys show no hydronephrosis or calculi. There are minimal atherosclerotic calcifications. No abdominal aortic aneurysm. Pelvis: Prostate is mildly enlarged. Urinary bladder is nondistended. There is moderate retained stool. No bowel in formation or obstruction. Normal appendix. No free fluid, free air, or abscess. No enlarged adenopathy. Osseous structures: There is a small area of mixed sclerosis and lucency superiorly at the right femoral head consistent with early AVN. No acute osseous findings. IMPRESSION: 1. Atelectasis versus early pneumonia in the lung bases. 2. Mild splenomegaly can be normal variation or can be seen in the setting of mononucleosis. 3. No other acute findings seen. ACT 112: Negative or not required by law. The above report was generated using voice recognition software. It may contain grammatical, syntax or spelling errors. Electronically signed by: Hemal Perkins M.D. 12/21/2024 3:[address] 12/21/24 14:55 CT head/brain wo con CLINICAL HISTORY: AMS Technique: Contiguous axial CT images of the head were acquired from the base of the skull to the vertex without intravenous contrast administration. Images were viewed in brain, subdural and bone windows. Automated dose lowering techniques and/or adjustment according to patient size were utilized for this exam. Comparison: None available at the time of this dictation. Findings: The ventricles, basal cisterns, and cerebral sulci are normal. There is no acute intracranial hemorrhage or evidence of acute territorial infarction. Neither mass effect, shift of the midline structures, nor abnormal extra-axial fluid collections are shown. Imaged portions of the paranasal sinuses and mastoid air cells are clear. The orbits appear normal. There are no acute fractures of the calvaria or scalp swelling. Impression: No acute intracranial hemorrhage, no evidence of acute territorial infarction or other acute intracranial disease process. ACT 112: Negative or not required by law. Electronically signed by: Quincy Loya M.D. 12/21/2024 3:28 PM Medications Administered Home Medications Medication Instructions Recorded Confirmed Last Taken glimepiride 1 mg tablet 2 mg PO QDB 12/21/24 12/21/24 Unknown metformin 850 mg tablet 850 mg PO BID 12/21/24 12/21/24 Unknown omeprazole 40 mg capsule,delayed 40 mg PO DAILY 12/21/24 12/21/24 Unknown release oxycodone 15 mg tablet 15 mg PO Q6 PRN Pain 12/21/24 12/21/24 Unknown rosuvastatin 10 mg tablet 10 mg PO HS 12/21/24 12/21/24 Unknown warfarin 5 mg tablet 5 - 15 mg PO DAILY 12/21/24 12/21/24 Unknown Code Status & VTE Plan Code Status FULL CODE Supervising Physician Co-Signing Physician Notes I have seen and discussed the case with the collaborating advanced practitioner. I agree with the above H&P. I have reviewed and confirmed the patients medical history, the findings on physical examination, and the patients diagnosis and treatment plan with Bert ALCAZAR and agree with the information documented. In short, Mr. Skinner experienced an episode of altered mentation iso hyperglycemia. Patient reports sometimes similar events happen with hyperglycemic events, but he never has been "this high." He denies any other symptoms-- but does report GI illness that resolved on Thursday. Patient adamantly denies any other illicit use. He states he only takes the oxycodone q6 as prescribed to him. PDMP reviewed. He denies chest pain, palpitations. VS with fever 37.8 GENERAL APPEARANCE: AxOx4, flat/tired appearing HEENT: NC, AT. dry mucous membranes NECK: Supple without lymphadenopathy. No stiffness or restricted ROM. HEART: tachycardic LUNGS: CTAB, moving air well. No crackles or wheezes are heard. ABDOMEN: Soft, nontender, nondistended with good bowel sounds heard. BACK: No CVAT, no obvious deformity. EXTREMITIES: Without cyanosis, clubbing or edema. NEUROLOGICAL: Grossly nonfocal. Alert and oriented, moving all 4 extremities. CN not formally tested but appear grossly intact. Skin: Warm and dry without any rash. #Altered mental status, r/o TIA v 2/2 hyperglycemia #history of CVA at [address] head wnl episode of disorientation with glucose up to 400s reportedly; seemingly resolved upon exam tachycardic and htn on arrival, potentially 2/2 dehydration -continue fluids -MRI ordered (iso hx of reported stroke -Monitor on tele -ECHO #Tachycardia #Dehydration #elevated lactate low grade ever, abnormal CXR, lactate and recent GI illness, Increase spec grav on UA IVF brief course of azithromycin give ?atypical process consider further imaging if warranted ip v op #DMTII A1C in am SSI for now hold home meds #abnormal UA #Chronic opioid use counseled on avoid other substances, reviewed PDMP continue home regimen I spent a total of 35 minutes coordinating, documenting, and providing care for this patient excluding time spent in the performance of separately billed services. All of the aforementioned completed outside of collaborating with the assigned advanced practitioner for a full treatment plan. I have reviewed the advanced practitioner's documentation, and I agree with, and take responsibility for the plan of care
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
--- OUTSIDE RECORDS SUMMARY | 2024-12-21 19:47 | External Medical Summary ---
Author Name Unknown Address Unknown Organization [id number]:LABORATORY [facility] - [facility] [address] [facility] [address] Laboratory Report Ordering Provider Test Date Status NICK SANCHES 09/14/2024 15:22:35 Final Observation Date Value Abnormality Reference (Units ) Status HbA1C 09/14/2024 15:22:35 7.3 Above high normal 4. 0-5.6 (%) Final The use of HbA1c to monitor glycemic status is based on normal hemoglobin and HbA composition. This test should not be used in patients with abnormal hemoglobin that affects the half life of the red blood cell or the in vivo glycation rates. Glucose, estimated average 09/14/2024 15:22:35 163 Above high normal <126 (mg/dL) Jerome turner Performing Location LABORATORY [facility] - [address] [facility] [address]
--- OUTSIDE RECORDS SUMMARY | 2024-12-21 19:47 | External Medical Summary ---
Author Name Unknown Address Unknown Organization [id number]:LABORATORY [facility] - [facility] [address] [address] Laboratory Report Ordering Provider Test Date Status BEATRICE OWENS 09/14/2024 15:24:35 Final Please draw PT/INR every 1-4 weeks or as requested by the [facility]

Warfarin Therapy
INR: 2.0-3.0 conventional anticoagulation
INR: 2.5-3.5 high intensity anticoagulation Observation Date Value Abnormality Reference (Units ) Status PT 09/14/2024 15:24:35 23.5 Above high normal 11 .6-15.2 (seconds) Final INR 09/14/2024 15:24:35 2.1 Above high normal 0. 8-1.2 Final Performing Location LABORATORY [facility] [place] - [facility] [address]
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
--- OUTSIDE RECORDS SUMMARY | 2024-12-21 19:47 | External Medical Summary ---
Author Name Unknown Address Unknown Organization [id number]:[facility] - [facility] [address] [facility] [address] [facility] [address] Laboratory Report Ordering Provider Test Date Status NICK SANCHES 09/14/2024 15:22:35 Final Observation Date Value Abnormality Reference (Units ) Status WBC, Total 09/14/2024 15:22:35 6.64 4.00-10.80 (K/uL) Final RBC 09/14/2024 15:22:35 5.60 4.50-5.25 (M/uL) Final Hemoglobin 09/14/2024 15:22:35 17.0 Above high normal 14.0-16.8 (g/dL) Final HCT 09/14/2024 15:22:35 48.8 Above high normal 40.0-48.4 (%) Final MCV 09/14/2024 15:22:35 87.1 82.0-99.5 (fL) Final MCH 09/14/2024 15:22:35 30.4 27.0-34.0 (pg) Final MCHC 09/14/2024 15:22:35 34.8 32.0-36.0 (g/dL) Final RDW 09/14/2024 15:22:35 12.6 11.5-15.5 (%) Final Platelets 09/14/2024 15:22:35 193 140-400 (K/uL) Final MPV 09/14/2024 15:22:35 9.8 6.6-11.1 (fL) Final Nucleated erythrocytes/100 leukocytes [Ratio] in Blood by Automated count 09/14/2024 15:22:35 0 <=0 (/100 WBCs) Final Performing Location [facility] - [address] [facility] [address]
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
--- OUTSIDE RECORDS SUMMARY | 2024-12-21 19:47 | External Medical Summary ---
Author Name Unknown Address Unknown Organization [id number]:LABORATORY [facility] [place] - [address] [facility] [address] Laboratory Report Ordering Provider Test Date Status ERIKA SANCHESCHEL 09/14/2024 15:22:35 Final Observation Date Value Abnormality Reference (Units ) Status BUN 09/14/2024 15:22:35 11 6-20 (mg/dL) Final Creatinine 09/14/2024 15:22:35 0.9 0.6-1.2 (mg/dL) Final Glomerular filtration rate/1.73 sq M.predicted [Volume Rate/Area] in Serum, Plasma or Blood by Creatinine-based formula (CKD-EPI) 09/14/2024 15:22:35 >90 >=60 (mL/min) Final eGFR is calculated based on the CKD-EPI 2020 equation. Sodium 09/14/2024 15:22:35 141 135-146 (m mol/L) Final Potassium 09/14/2024 15:22:35 3.8 3.5-5.1 (m mol/L) Final Cl 09/14/2024 15:22:35 101 98-107 (mm ol/L) Final CO2 09/14/2024 15:22:35 24 22-32 (mmo l/L) Final Anion gap 09/14/2024 15:22:35 16 Above high normal 7- 15 (mmol/L) Final Glucose 09/14/2024 15:22:35 106 70-120 (mg /dL) Final Albumin 09/14/2024 15:22:35 4.6 3.8-5.0 (g /dL) Final AST (Aspartate aminotransferase) 09/14/2024 15:22:35 23 10-50 (U/L) Fin al Alk Phos 09/14/2024 15:22:35 104 35-130 (U/ L) Final Bilirubin, Total 09/14/2024 15:22:35 0.6 <=1 .2 (mg/dL) Final Calcium 09/14/2024 15:22:35 9.7 8.4-10.2 ( mg/dL) Final Protein 09/14/2024 15:22:35 6.8 6.0-8.3 (g /dL) Final ALT (Alanine aminotransferase) 09/14/2024 15:22:35 29 10-50 (U/L) Jerome turner Performing Location LABORATORY [facility] [place] - [address] [facility] [address]
--- OUTSIDE RECORDS SUMMARY | 2024-12-21 19:47 | External Medical Summary ---
Author Name Unknown Address Unknown Organization [id number]:LABORATORY [place] [address] [facility] [address] Laboratory Report Ordering Provider Test Date Status NICK SANCHES 09/14/2024 15:22:35 Final Observation Date Value Abnormality Reference (Units ) Status Calcium.ionized [Moles/volume] in Serum or Plasma by Ion-selective membrane electrode (ISE) 09/14/2024 15:22:35 1.28 1.13-1.32 (mmol/L) Final This test was developed and its performance characteristics dtermined by [employer]. It has not been cleared or approved by the US Food and Drug Administration Performing Location [facility]ORY [place] [address] [address] [facility] [address]
--- OUTSIDE RECORDS SUMMARY | 2024-12-21 19:47 | External Medical Summary ---
Author Name Unknown Address Unknown Organization [id number]:LABORATORY [facility] [place] - [address] [facility] [place] [address] Laboratory Report Ordering Provider Test Date Status NICK SANCHES 09/14/2024 15:22:35 Final Observation Date Value Abnormality Reference (Units ) Status Parathyrin.intact [Mass/volume] in Serum or Plasma 09/14/2024 15:22:35 48 15-65 (pg/mL) Final Performing Location LABORATORY [facility] [place] - [address] [facility] [address]
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
--- OUTSIDE RECORDS SUMMARY | 2024-12-21 19:48 | External Medical Summary ---
Author Name Unknown Address Unknown Organization K01:[facility]ORY [facility] - [address] [facility] [address] Laboratory Report Ordering Provider Test Date Status JON FAULKNER 07/20/2024 09:50:31 Final Observation Date Value Abnormality Reference (Units ) Status WBC, Total 07/20/2024 09:50:31 6.95 4.00-10.80 (K/uL) Final RBC 07/20/2024 09:50:31 5.83 4.50-5.25 (M/uL) Final Hemoglobin 07/20/2024 09:50:31 17.9 Above high normal 14.0-16.8 (g/dL) Final HCT 07/20/2024 09:50:31 51.4 Above high normal 40.0-48.4 (%) Final MCV 07/20/2024 09:50:31 88.2 82.0-99.5 (fL) Final MCH 07/20/2024 09:50:31 30.7 27.0-34.0 (pg) Final MCHC 07/20/2024 09:50:31 34.8 32.0-36.0 (g/dL) Final RDW 07/20/2024 09:50:31 13.0 11.5-15.5 (%) Final Platelets 07/20/2024 09:50:31 160 140-400 (K/uL) Final MPV 07/20/2024 09:50:31 10.5 6.6-11.1 (fL) Final Nucleated erythrocytes/100 leukocytes [Ratio] in Blood by Automated count 07/20/2024 09:50:31 0 <=0 (/100 WBCs) Final Performing Location LABORATORY [facility] - [address] [facility] [address]
--- OUTSIDE RECORDS SUMMARY | 2024-12-21 19:48 | External Medical Summary ---
Author Name Unknown Address Unknown Organization K01:LABORATORY [facility] [place] - [address] [facility] [address] Laboratory Report Ordering Provider Test Date Status JON FAULKNER 07/20/2024 09:50:31 Final Observation Date Value Abnormality Reference (Units ) Status HbA1C 07/20/2024 09:50:31 7.5 Above high normal 4. 0-5.6 (%) Final The use of HbA1c to monitor glycemic status is based on normal hemoglobin and HbA composition. This test should not be used in patients with abnormal hemoglobin that affects the half life of the red blood cell or the in vivo glycation rates. Glucose, estimated average 07/20/2024 09:50:31 169 Above high normal <126 (mg/dL) Jerome turner Performing Location LABORATORY [facility] - [address] [facility] [address]
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
--- OUTSIDE RECORDS SUMMARY | 2024-12-21 19:48 | External Medical Summary ---
Author Name Unknown Address Unknown Organization K01:LABORATORY [facility] - [address] [place] [address] Laboratory Report Ordering Provider Test Date Status JON FAULKNER 07/20/2024 09:50:31 Final Observation Date Value Abnormality Reference (Units ) Status Magnesium 07/20/2024 09:50:31 2.3 1.5-2.6 (m g/dL) Final Performing Location [facility]ORY [facility] - [address] [facility] [address]
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
--- OUTSIDE RECORDS SUMMARY | 2024-12-21 19:48 | External Medical Summary ---
Author Name Unknown Address Unknown Organization [id number]:[facility] [place] [address] [facility] [address] Laboratory Report Ordering Provider Test Date Status JON FAULKNER 07/20/2024 09:50:31 Final Observation Date Value Abnormality Reference (Units ) Status BUN 07/20/2024 09:50:31 12 6-20 (mg/dL) Final Creatinine 07/20/2024 09:50:31 0.8 0.6-1.2 (mg/dL) Final Glomerular filtration rate/1.73 sq M.predicted [Volume Rate/Area] in Serum, Plasma or Blood by Creatinine-based formula (CKD-EPI) 07/20/2024 09:50:31 >90 >=60 (mL/min) Final eGFR is calculated based on the CKD-EPI 2020 equation. Sodium 07/20/2024 09:50:31 140 135-146 (m mol/L) Final Potassium 07/20/2024 09:50:31 4.2 3.5-5.1 (m mol/L) Final Cl 07/20/2024 09:50:31 103 98-107 (mm ol/L) Final CO2 07/20/2024 09:50:31 25 22-32 (mmo l/L) Final Anion gap 07/20/2024 09:50:31 12 7-15 (mmol /L) Final Glucose 07/20/2024 09:50:31 171 Above high normal 70 -120 (mg/dL) Final Albumin 07/20/2024 09:50:31 4.9 3.8-5.0 (g /dL) Final AST (Aspartate aminotransferase) 07/20/2024 09:50:31 38 10-50 (U/L) Fin al Alk Phos 07/20/2024 09:50:31 120 35-130 (U/ L) Final Bilirubin, Total 07/20/2024 09:50:31 0.6 <=1 .2 (mg/dL) Final Calcium 07/20/2024 09:50:31 10.4 Above high normal 8. 4-10.2 (mg/dL) Final Protein 07/20/2024 09:50:31 7.3 6.0-8.3 (g /dL) Final ALT (Alanine aminotransferase) 07/20/2024 09:50:31 57 Above high normal 10-50 (U/L) Final Performing Location [facility] [place] [address] [facility] [address]
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
--- OUTSIDE RECORDS SUMMARY | 2024-12-21 19:48 | External Medical Summary ---
Author Name Unknown Address Unknown Organization [id number]:LABORATORY [facility] [place] - [address] [facility] [address] Laboratory Report Ordering Provider Test Date Status JON FAULKNER 07/20/2024 09:50:31 Final Observation Date Value Abnormality Reference (Units ) Status Triglyceride 07/20/2024 09:50:31 129 <=174 ( mg/dL) Final Triglyceride Reference Range s (mg/dL):
<150 Acceptable
150-174 Borderline high
175-499 High
>=500 Very high Cholesterol 07/20/2024 09:50:31 153 <200 (mg /dL) Final Total Cholesterol Reference Ranges (mg/dL):
<200 Desirable
200-239 Borderline high
>=240 High HDL 07/20/2024 09:50:31 45 >39 (mg/dL ) Final HDL Cholesterol Reference Ra nges (mg/dL):
>=60 High (Desirable)
<50 Low (Undesirable) For Females
<40 Low (Undesirable) For Males NON-HDL CHOLESTEROL 07/20/2024 09:50:31 108 <=159 (mg/dL) Final Non-HDL Cholesterol Referenc e Range (mg/dL):
<100 Target level for high risk ASCVD patient
<130 Optimal for general population
130-159 Near optimal for general population
160-189 Borderline High
190-219 High
>=220 Very High LDL, (calculated) 07/20/2024 09:50:31 82 <= 129 (mg/dL) Final LDL Cholesterol Reference Ra nges (mg/dL):
<70 Target level for high risk ASCVD patient
<100 Optimal for general population
100-129 Near optimal for general population
130-159 Borderline high
160-189 High
>=190 Very high Performing Location LABORATORY [facility] [place] - [address] [facility] [address]
--- OUTSIDE RECORDS SUMMARY | 2024-12-21 19:48 | External Medical Summary ---
Author Name Unknown Address Unknown Organization [id number]:[facility] [place] [address] [address] Laboratory Report Ordering Provider Test Date Status BEATRICE OWENS 07/20/2024 09:52:43 Final Please draw PT/INR every 1-4 weeks or as requested by the [facility]

Warfarin Therapy
INR: 2.0-3.0 conventional anticoagulation
INR: 2.5-3.5 high intensity anticoagulation Observation Date Value Abnormality Reference (Units ) Status PT 07/20/2024 09:52:43 21.0 Above high normal 11 .6-15.2 (seconds) Final INR 07/20/2024 09:52:43 1.8 Above high normal 0. 8-1.2 Final Performing Location LAB[facility] [place] - [address] [place] [address]
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
[2024-12-21] MEDS ORDERED: AZITHROMYCIN 500 MG VIAL IV STA (19:51)
[2024-12-21] MEDS ORDERED: ONDANSETRON INJ 2 MG/ML 2 ML VIAL IV PRN (20:07)
[2024-12-21] MEDS ORDERED: FAMOTIDINE 20 MG TAB PO PRN (20:07)
[2024-12-21] MEDS ORDERED: GLUCOSE 40% GEL 15 GM TUBE PO PRN (20:07)
[2024-12-21] MEDS ORDERED: DEXTROSE 50% 50 ML SYRINGE IV PRN (20:07)
[2024-12-21] MEDS ORDERED: GLUCOSE 10 TAB/TUBE PO PRN (20:07)
[2024-12-21] MEDS ORDERED: POLYETHYLENE (MIRALAX) 17 GM PACK PO PRN (20:07)
[2024-12-21] MEDS ORDERED: GLUCAGON FOR INJ 1 MG VIAL SQ PRN (20:07)
[2024-12-21] MEDS ORDERED: CARBOHYDRATES FOR HYPOGLYCEMIA PO PRN (20:07)
[2024-12-21] MEDS: SODIUM CHLORIDE 0.9% 1,000 ML IV SCH (20:54)
[2024-12-21] MEDS: AZITHROMYCIN 500 MG in SODIUM CHLORIDE 0.9% 250 ML IV ONE (20:54)
[2024-12-21] MEDS: INSULIN ASPART PER UNIT CHARGE SC SCH (21:01)
[2024-12-21] MEDS: oxyCODONE HCL IR 5 MG TAB (IMMEDIATE RELEASE) PO SCH (21:01)
[2024-12-21] MEDS: ROSUVASTATIN CALCIUM 10 MG TAB PO SCH (21:04)
[2024-12-21] MEDS: LANTUS PER UNIT CHARGE SQ SCH (21:04)
[2024-12-22 07:09] VITALS: RESP 18
[2024-12-22] MEDS: AZITHROMYCIN 250 MG TAB PO SCH (09:31)
[2024-12-22] MEDS: PANTOprazole 40 MG TAB PO SCH (09:31)
[2024-12-22] MEDS: ACETAMINOPHEN 325 MG TAB PO PRN (10:48)
[2024-12-22 11:15] VITALS: TEMP 98.6; O2SAT 95
[2024-12-22 12:18] LABS: Basophils # (auto) 0.02 K/uL (0.00-0.20); Basophils % (auto) 0.2 %; Eosinophils # (auto) 0.11 K/uL (0.00-0.50); Eosinophils % (auto) 1.1 %; Hematocrit (blood only) 34.2 % (42.0-52.0); Hemoglobin 12.2 g/dl (14.0-18.0); Immature Granulocytes # (auto) 0.02 K/uL (0.01-0.20); Immature Granulocytes % (auto) 0.2 %; Lymphocytes # (auto) 1.07 K/uL (1.20-3.40); Lymphocytes % (auto) 11.2 %; Mean Corpuscular Hemoglobin 29.3 pg (25.0-34.0); Mean Corpuscular Hgb Conc 35.7 g/dL (32.0-36.0); Mean Corpuscular Volume 82.2 fL (80.0-100.0); Mean Platelet Volume 9.3 fL (9.4-12.4); Monocytes # (auto) 0.61 K/uL (0.11-0.59); Monocytes % (auto) 6.4 %; Neutrophils # (auto) 7.74 K/uL (1.40-6.50); Neutrophils % (auto) 80.9 %; Platelet Count 149 K/uL (130-400); RDW Coefficient of Variation 12.7 % (11.5-14.5); RDW Standard Deviation 37.7 fL (36.4-46.3); Red Blood Count 4.16 M/uL (4.70-6.10); White Blood Count 9.57 K/ul (4.8-10.8)
[2024-12-22 12:22] LABS: BUN Creatinine Ratio 11.8 (10-20); Calcium 8.6 mg/dl (8.6-10.3); Creatinine Clr Calc Pharmacy 149.4 ml/min; Estimated Average Glucose 146 mg/dl; Hemoglobin A1C 6.7 % (4.5-5.6); Magnesium 1.6 mg/dl (1.7-2.4); Potassium 3.7 mmol/L (3.5-5.1)
--- NOTE | 2024-12-22 12:24 | Magnetic Resonance Report ---
MR brain wo con CLINICAL HISTORY: AMS/r/o stroke TECHNIQUE: Multiplanar and multisequence MR images of the brain were obtained without intravenous con trast. Comparison: None available at the time of this dictation. FINDINGS: No abnormal restricted diffusion is identified. The white matter is unremarkable. Ex vacuo ventriculo megaly and sulcal enlargement is noted compatible with diffuse volume loss. No mass is seen. There is no mass effect or midline shift. There is no evidence of acute intraparenchymal hemorrhage. No extra axial fluid collections are seen. The corpus callosum, pituitary gland, and cerebellar tonsils appea r grossly unremarkable. Flow voids of the major intracranial arterial vessels are identified. Sinus mucosal thickening is see n most prominent in the maxillary sinuses bilaterally. IMPRESSION: No acute abnormality and in particular no evidence of acute infarct. ACT 112: Negative or not required by law. Electronically signed by: Quincy Loya M.D. 12/22/2024 12:22 PM
[2024-12-22 12:26] LABS: INR 2.2 (0.9-1.1); Prothrombin Time 22.5 Seconds (9.0-12.0)
--- NOTE | 2024-12-22 15:42 | Discharge Summary ---
Discharge Summary Date of Service December 22, 2024 Principal Dx & Hospital Course #1 = Principal Diagnosis (1) Altered mental status: (2) Labile blood glucose: (3) T2DM (type 2 diabetes mellitus): Plan Patient presented to the emergency room from work with acute altered mental status. He was reported in the feel that his sugar was greater than 400. Had a decrease to 200s here in the hospital. Initial evaluation in the emergency room was concerning for mildly elevated INR and chest x-ray imaging consistent with possible atypical pneumonia. Patient was admitted to the hospital. He was started empirically on Zithromax for his atypical pneumonia. His glucoses were closely monitored and was managed with insulin. He was monitored on telemetry and there is no significant arrhythmias. His mental status returned to baseline as his glucose stabilized. Patient underwent MRI of the brain which was negative for acute infarct or other significant acute findings. Patient's hemoglobin A1c was tested at 6.7%. He received some diabetes counseling here in the hospital. It was learned that he does drink Mountain Dew and other high carbohydrate foods that could cause spikes in his blood glucose. It is suspected that the patient may have rapid changes in his blood glucose levels not resulting in hypoglycemia but a rapid change in his glucose that may cause some of his altered mental status. tobacco educator discussed this with him this information was repeated and affirmed by myself. Also his was notified and educated as well. He will continue his usual diabetes medications since his overall his hemoglobin A1c is well controlled and less than 7. His INR returned to therapeutic level. He will continue his usual Coumadin therapy starting tomorrow. He will complete a course of Zithromax for atypical pneumonia and follow-up with his PCP. Notes For Next Care Provider Continue to monitor INR with goal INR 2-3 Continue to monitor and manage diabetes Medication Changes From Visit Zithromax added for atypical pneumonia Admission HPI Per Admitting Provider This is a 49 yr old M who has a significant PMH of T2DM, HLD, Hypertriglyceridemia, GERD who presents to ED 2/2 AMS. Pt is at bedside who helps elicit history. states at 12:15 she received a call from pts covering and lining supervisor and was told they were concerned about him as he was disoriented, he was white and his BSG was over 400s. EMS was then summoned as pt never has had a BSG that high. His blood pressure en route per was also elevated which she reports he never has had issues with his blood pressure. reports his bsg has been in the 200s and he will get very tired with it that high. No other focal deficits reported including facial droop, slurred speech or extremity weakness. Prior to today episode he was in his normal state of health. He drove him and his to work this morning and he was fine. He reports being at his work bench and was slumped over. His co workers were asking if he was okay. He took all of his medications today. He denies any recent illness, f/c/s, chest pain, sob, n/v/d. Currently he states he feels alright. He doesn't feel like his energy is 100%. The feels like his color is back to normal and his mental status is back to baseline. He denies any alcohol or cigarettes, but he does use chewing tobacco. His last A1C was 7.3 on 09/14/24. Admission Exam Per Admitting Provider See H&P Discharge Exam Constitutional: Alert HEENT: Mucous membranes moist. Lungs: Clear to auscultation, decreased, no wheezes rales or rhonchi CV: S1-S2, regular Abdomen: Soft, nontender, nondistended Extremities: No significant edema Neuro: No focal deficits Psych: Cooperative, flat affect Updated Medication List Medication Instructions Recorded Confirmed Type glimepiride 1 mg tablet 2 mg PO QDB 12/21/24 12/21/24 History metformin 850 mg tablet 850 mg PO BID 12/21/24 12/21/24 History omeprazole 40 mg capsule,delayed 40 mg PO DAILY 12/21/24 12/21/24 History release oxycodone 15 mg tablet 15 mg PO Q6 PRN Pain 12/21/24 12/21/24 History rosuvastatin 10 mg tablet 10 mg PO HS 12/21/24 12/21/24 History warfarin 5 mg tablet 5 mg PO WE 12/21/24 12/21/24 History warfarin 5 mg tablet 10 mg PO SUMOTUTHFRSA 12/21/24 12/21/24 History azithromycin 250 mg tablet 250 mg PO QAM #3 tabs 12/22/24 Rx Hospital Stay Data Consultations 12/21/24 16:41 ED Decision to Admit Stat Diagnostic Imagining Performed 12/21/24 14:55 CT abd pelvis IV con only Stat CT head/brain wo con Stat 12/22/24 11:46 MR brain wo con Routine Reviewed imaging, laboratory and diagnostic studies. Pertinent findings as below. MRI of the brain negative for acute infarct Hemoglobin A1c 6.7% Magnesium 1.6, repleted approved for discharge WBCs 9.5 Hemoglobin 12.2 INR 2.2 Pending Results Patient Have Any Pending Studies at Discharge: No Discharge Instructions Given to Patient (Per Discharging Provider) Hold Coumadin tonight and resume tomorrow. Get PT/INR checked per usual process on Thursday avoid large swings in your glucose. Total Time Total Time Spent Total Time Spent (In Minutes): 35
[2024-12-22 15:57] VITALS: BP 135/80; PULSE 86
[2024-12-22] MEDS: MAGNESIUM OXIDE 400 MG TAB PO ONE (16:11)
[2024-12-22 23:33] LABS: A calco-baum cmplx NotReported Not Detected (NotDetected); Bact fragilis Not Reported Not Detected (NotDetected); Blood Culture Id Panel PCR Panel Negative (NotDetected); C auris Not Reported Not Detected (NotDetected); Calbicans Not Reported Not Detected (NotDetected); Candida glabrata Not Reported Not Detected (NotDetected); Candida krusei Not Reported Not Detected (NotDetected); Cneoformans/gatti Not Reported Not Detected (NotDetected); Cparapsilosis Not Reported Not Detected (NotDetected); E cloacae compx Not Reported Not Detected (NotDetected); Efaecalis Not Reported Not Detected (NotDetected); Efaecium Not Reported Not Detected (NotDetected); Enterobacterales Not Reported Not Detected (NotDetected); Escherichia coli Not Reported Not Detected (NotDetected); H influenzae Not Reported Not Detected (NotDetected); K aerogenes Not Reported Not Detected (NotDetected); Koxytoca Not Reported Not Detected (NotDetected); Kpneumoniae grp Not Reported Not Detected (NotDetected); Lmonocyt Not Reported Not Detected (NotDetected); N meningitidis Not Reported Not Detected (NotDetected); P aeruginosa Not Reported Not Detected (NotDetected); Proteus spp Not Reported Not Detected (NotDetected); Salmonella spp Not Reported Not Detected (NotDetected); Staph lugdunensis Not Reported Not Detected (NotDetected); Staph spp. Not Reported Not Detected (NotDetected); Staphaureus Not Reported Not Detected (NotDetected); Staphepi Not Reported Not Detected (NotDetected); Stenmaltophilia Not Reported Not Detected (NotDetected); Strep agal(GrpB) Not Reported Not Detected (NotDetected); Strep pneum Not Reported Not Detected (NotDetected); Strep pyog (GrpA) Not Reported Not Detected (NotDetected); Strep spp Not Reported Not Detected (NotDetected)
--- NOTE | 2024-12-23 02:15 | Communication Note ---
Date of Service: December 23, 2024 Made aware by laboratory cureman of abnormal blood CS result 1 bottle Patient discharged yesterday. Aerobic bottle of the 1st set of blood culture bottle - Gram positive cocci in clusters. Will relay result to Dr. Bose for further disposition in a.m.
--- NOTE | 2024-12-23 13:03 | Communication Note ---
Date of Service: December 23, 2024 Followed up with patient on blood culture report. Aware that 1 out of 4 bottles growing micrococcus. This is most likely contaminant. Patient reports he is feeling much better today and is actually out and about. Did call in some additional antibiotics for his pneumonia Augmentin for a 5-day course. He will follow-up with his providers as previously planned.
[2024-12-24 14:33] LABS: 7-Aminoclonaz, Confirm NEGATIVE ng/mL (<25); Codeine Urine NEGATIVE ng/mL (<50); Hydro-Alp Ur, GC/MS 97 ng/mL (<25); Hydrocodone Urine NEGATIVE ng/mL (<50); Hydromor Urine NEGATIVE ng/mL (<50); Hydroxyethylflurazepam, Conf NEGATIVE ng/mL (<50); Hydroxymidazolam Ur, GC/MS NEGATIVE ng/mL (<50); Hydroxytriazolam NEGATIVE ng/mL (<50); Lorazepam, Ur GC/MS NEGATIVE ng/mL (<50); Morphine Urine NEGATIVE ng/mL (<50); Nordiazepam, Confirm NEGATIVE ng/mL (<50); Norhydrocodone Conf Ur NEGATIVE ng/mL (<50); Noroxycodone Urine >10000 ng/mL (<50); Oxazepam Ur, GC/MS NEGATIVE ng/mL (<50); Oxycodone Urine >10000 ng/mL (<50); Oxymorph Urine >10000 ng/mL (<50); Temazepam, Confirm NEGATIVE ng/mL (<50)
== END 2024-12-22 17:30 | disposition home or self-care (01) ==
LOC: ED 13:25 → EDINP 13:25 → SUATTDRO 17:38 → 2W 20:08